=== PATIENT | male | born 1970 | race African-American/Black ===

== ENCOUNTER 2016-06-02 01:19 | Emergency (ER) | payer OTHER ==
[2016-06-02] MEDS: IV NORMAL SALINE 1,000ML 1,000 ML IV ONE (01:50)
[2016-06-02 01:52] LABS: HEMOGLOBIN ISTAT 13.9 gm/dL; POTASSIUM ISTAT 3.9 mmol/L (3.5-5.0)
[2016-06-02] MEDS ORDERED: IV NORMAL SALINE 1,000ML 1,000 ML ONE (01:53)
--- NOTE | 2016-06-02 01:54 | RAD ---
CT head without contrast: Reason for examination: Severe headache. Axial images were obtained through the brain. No contrast was administered. Exposure: One or more of the following individualized dose reduction techniques were used for this examination: 1. Automated exposure control. 2. Adjustment of the mA and/or kV according to patient size. 3. Use of iterative reconstruction technique. Ventricular systems are symmetric and not abnormally dilated. No midline shift is seen. There is no evidence of intracranial hemorrhage, infarct, mass or edema. No abnormalities are seen at the orbits. The paranasal sinuses and mastoid air cells are clear. No acute abnormalities seen in the skull. Impression: No acute intracranial abnormality evident. Electronically signed by: Lou Mendez MD (Jun 02, 2016 01:53:13)
[2016-06-02 01:55] LABS: BILIRUBIN,URINE NEG (NEG); CLARITY,URINE CLEAR; COLOR,URINE YELLOW; GLUCOSE,URINE NEG (NEG); UROBILINOGEN,URINE 0.2 mg/dL (0.2 mg/dL)
[2016-06-02 01:55] LABS: BASO # 0.1 x10^3/uL (0.0-0.2); BASO % 1 % (0-3); EOS # 0.1 x10^3/uL (0.0-0.7); EOS % 1 % (0-3); HEMATOCRIT 41.8 % (39.0-53.0); HEMOGLOBIN 13.9 g/dL (13.0-17.5); LYMPH % 26 % (24-48); MEAN CORPUSCULAR HEMOGLOBIN 29 pg (25-35); MEAN CORPUSCULAR HGB CONC 33 g/dL (31-37); MEAN CORPUSCULAR VOLUME 88 fL (79-100); MONO # 0.7 x10^3/uL (0.0-1.1); MONO % 9 % (0-9); NEUT # 4.9 x10^3uL (1.8-7.7); NEUT % 64 % (31-73); PLATELET COUNT 178 x10^3/uL (140-400); RED BLOOD COUNT 4.74 x10^6/uL (4.30-5.70); RED CELL DISTRIBUTION WIDTH 13.2 % (11.5-14.5); WHITE BLOOD COUNT 7.6 x10^3/uL (4.0-11.0)
[2016-06-02 01:56] LABS: NITRITE,URINE NEG (NEG)
[2016-06-02 01:57] LABS: BARBITURATES NEG (NEG); BENZODIAZEPINES NEG (NEG); CANNABINOIDS NEG (NEG); COCAINE NEG (NEG); METHADONE NEG (NEG); OPIATES NEG (NEG); PHENCYCLIDINE NEG (NEG)
[2016-06-02 01:58] LABS: AMPHETAMINE/METHAMPHETAMINE NEG (NEG)
[2016-06-02] MEDS ORDERED: ACETAMINOPHEN 325 MG TABLET PO ONE (02:50)
[2016-06-02] MEDS: ACETAMINOPHEN 325 MG TABLET PO ONE (02:51)
[2016-06-02 02:57] VITALS: BP 123/68
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
== END 2016-06-02 02:59 | disposition home or self-care (01) ==
LOC: ER 01:19
DX: R41.82 Altered mental status, unspecified (principal)
CPT/HCPCS: 36415; 70450; 80047; 80305; 80320; 81003; 84484; 85027; 96360; G0480; G0481; 99285-25; J7030